=== PATIENT | female | born 1980 | race African-American/Black ===

== ENCOUNTER 2016-07-16 16:28 | Emergency (ER) | payer OTHER ==
[~2016-07-16] VITALS: Ht 165.1 cm; Wt 95.3 kg
[~2016-07-16 16:28] MED LIST: BENZ100C PO; NAPR375T3 PO
[2016-07-16 17:35] VITALS: BP 151/72
--- NOTE | 2016-07-16 17:38 | PHYS DOC ---
Past Medical History Past Medical History: No Pertinent History Past Surgical History: Other Additional Past Surgical Histo: "freeze spots on my cervix" Alcohol Use: None Drug Use: None Adult General Chief Complaint Chief Complaint: HEADACHE HPI HPI Patient is a 35 year old female who presents emergency Department today with a headache that has not responded to [id number] medication for the past 2 days. Patient denies any head injury. She reports some photophobia. She denies phonophobia. She denies nausea or vomiting. She denies fevers or chills. Patient denies focal weakness or alteration sensations. Patient does have a history of headaches in the past. She was actually seen here in March 2015 with a similar complaint. She had a CT scan performed at that time which was normal. Patient states that she did follow-up with a primary care doctor, but has not seen a neurologist. She states that she currently doesn't take any preventive medication for her headache. Review of Systems Review of Systems Constitutional: Denies fever or chills [] Eyes: Denies change in visual acuity, redness, or eye pain [] HENT: Denies nasal congestion or sore throat [] Respiratory: Denies cough or shortness of breath [] Cardiovascular: No additional information not addressed in HPI [] GI: Denies abdominal pain, nausea, vomiting, bloody stools or diarrhea [] : Denies dysuria or hematuria [] Musculoskeletal: Denies back pain or joint pain [] Integument: Denies rash or skin lesions [] Neurologic: Denies headache, focal weakness or sensory changes [] Endocrine: Denies polyuria or polydipsia [] Current Medications Current Medications Current Medications Medications (Trade) Dose Ordered Sig/Jeff Start Time Stop Time Status Last Admin Dose Admin Diphenhydramine HCl (Benadryl) 50 mg 1X ONCE 07/16/16 18:15 07/16/16 18:16 DC 07/16/16 18:20 50 MG Ketorolac Tromethamine (Toradol Im) 60 mg 1X ONCE 07/16/16 18:15 07/16/16 18:16 DC 07/16/16 18:22 60 MG Allergies Allergies Allergies Coded Allergies Type Severity Reaction Last Updated Verified No Known Drug Allergies 03/15/15 No Physical Exam Physical Exam Constitutional: Well developed, well nourished, mild distress, non-toxic appearance. HENT: Normocephalic, atraumatic, bilateral external ears normal, oropharynx moist, no oral exudates, nose normal. Eyes: PERRLA, EOMI, conjunctiva normal, no discharge. [] Neck: Normal range of motion, no tenderness, supple, no stridor. Negative Brudzinski's or cervical lymphadenopathy. Cardiovascular:Heart rate regular rhythm, no murmur [] Lungs & Thorax: Bilateral breath sounds clear to auscultation [] Abdomen: Bowel sounds normal, soft, no tenderness, no masses, no pulsatile masses. [] Skin: Warm, dry, no erythema, no rash. [] Back: No tenderness, no CVA tenderness. [] Extremities: No tenderness, no cyanosis, no clubbing, ROM intact, no edema. [] Neurologic: Alert and oriented X 3, cranial nerves II through XII are intact. Patient is able perform rapid alternating movement and show without difficulty. Romberg is negative for pronator drift. Patient ambulates with a steady, unaided gait. Psychologic: Affect normal, judgement normal, mood normal. [] Current Patient Data Vital Signs Vital Signs Date Time Temp Pulse Resp B/P Pulse Ox O2 Delivery O2 Flow Rate FiO2 07/16/16 17:35 98.4 67 16 100 Room Air 98.4 Lab Values Laboratory Tests Test 07/16/16 16:55 POC Urine HCG, Qualitative Hcg negative (Negative) EKG EKG [] Radiology/Procedures Radiology/Procedures [] Course & Med Decision Making Course & Med Decision Making We'll await results of test. Patient's initial evaluation shows no evidence of meningitis or neurologic deficit. Dragon Disclaimer [place] Disclaimer This electronic medical record was generated, in whole or in part, using a voice recognition dictation system. Departure Departure Impression: Primary Impression: Headache Disposition: HOME, SELF-CARE Condition: GOOD Referrals: UNKNOWN PCP NAME (PCP) Patient Instructions: General Headache Without Cause, [id number] Additional Instructions: 1. As discussed, you have a previous history of headaches. You had a CT scan in March 2015 that was normal. 2. Review the discharge paperwork provided for self-care and reasons to return to the emergency department. 3. Take the medication as prescribed. 4. Follow-up with primary care doctor within the next 7-10 days. Scripts Ondansetron (Zofran Odt)4 Mg Tab.rapdis1 Tab SL Q8HRS nausea and vomiting #10 TAB Prov:SARAH HERRMANN 07/16/16 Butalb/Acetaminophen/Caffeine (Fioricet 50-300-40 Mg Capsule)1 Each Capsule1 Each PO PRN Q4HRS PRN HEADACHE #20 CAP Prov:SARAH HERRMANN 07/16/16 SARAH HERRMANN Jul 16, 2016 17:38
[2016-07-16] MEDS ORDERED: KETOROLAC TROMETHAMINE 60 MG/2 ML INJ. IM ONE (18:15)
[2016-07-16] MEDS ORDERED: DIPHENHYDRAMINE 50 MG/ML VIAL. IM ONE (18:15)
[2016-07-16] MEDS ORDERED: BUTA1CAP29 PO (18:19)
[2016-07-16] MEDS ORDERED: ONDA4TAB10 SL (18:19)
== END 2016-07-16 18:41 | disposition home or self-care (01) ==
LOC: ER 16:28
DX: R51 Headache (principal)
CPT/HCPCS: 81025; 96372; 99284; J1200; J1885

== ENCOUNTER → 2017-06-11 | Outpatient (CLI) | payer OTHER | END | disposition home or self-care (01) | LOC: SLPLAB 18:08 | DX: G47.33 Obstructive sleep apnea (adult) (pediatric) (principal) | CPT/HCPCS: 95810 ==

== ENCOUNTER → 2018-03-11 | Outpatient (CLI) | payer OTHER ==
[~2018-03-11] MED LIST changes: +BUTA1CAP29 PO; +NAPR-695 PO; -NAPR375T3 PO; +ONDA4TAB10 SL
--- NOTE | 2018-03-11 15:54 | KCIC ---
Bilateral digital screening mammograms: Reason for examination: Routine baseline screening. Interpretation was made with the benefit of CAD. The skin and nipples show no abnormalities. No abnormal axillary lymph nodes are seen. The breast parenchyma shows scattered fibroglandular density. (Breast density: Category B.) There are no dominant masses, suspicious calcifications or architectural distortions. Impression: No evidence of malignancy. Recommend routine screening. BI-RADS Category 1: Negative. "Our facility is accredited by the [employer] Mammography Program." This patient's information has been entered into a reminder system for the patient to be notified with the results of her examination and a target date for the next mammogram. Electronically signed by: Jory Marin MD (03/11/2018 3:50 PM) [id number]
== END | disposition home or self-care (01) ==
LOC: KCIC MAMMO 12:49
PROVIDERS: ATTEND Family Medicine
DX: Z12.31 Encounter for screening mammogram for malignant neoplasm of breast (principal)
CPT/HCPCS: 77067

== ENCOUNTER 2018-12-02 20:48 | Emergency (ER) | payer OTHER | END 2018-12-02 21:23 | disposition left against medical advice (07) | LOC: ER 20:48 | DX: G43.909 Migraine, unspecified, not intractable, without status migrainosus (principal); Z53.21 Procedure and treatment not carried out due to patient leaving prior to being seen by health care provider ==

== ENCOUNTER → 2019-02-13 | Outpatient (CLI) | payer OTHER ==
--- NOTE | 2019-02-13 09:15 | KCIC ---
Transabdominal pelvic ultrasound 02/13/2019 INDICATION: Heavy menstrual bleeding COMPARISON STUDY: None Discussion: Ultrasound evaluation of the pelvis was performed transabdominally. Static images are active. Uterus is enlarged measuring 17.1 x 9.3 x 10.2 cm. This is secondary to at least 2 large uterine masses, consistent with leiomyoma. Endometrial thickness is approximately 4 mm, though somewhat poorly evaluated due to adjacent fibroids. The larger fibroid is in the superior fundus, posteriorly measuring 7-8 cm in diameter. The smaller well-defined fibroid is in the anterior body measuring approximately 3 cm in diameter. The right ovary measures 2.4 x 2.2 x 3.1 cm left ovary measures 3.1 x 2.8 x 3.2 cm. Blood flow the ovaries is noted on color Doppler imaging. Limited visualization of the bladder is unremarkable. No free fluid is seen in the pelvis. IMPRESSION: Fibroid uterus. 2 dominant fibroids described above in detail. Electronically signed by: Deonte Lemus MD (02/13/2019 9:13 AM) [facility]
== END | disposition home or self-care (01) ==
LOC: KCIC US 07:54
PROVIDERS: ATTEND Obstetrics & Gynecology
DX: D25.9 Leiomyoma of uterus, unspecified (principal)
CPT/HCPCS: 76856

== ENCOUNTER 2019-03-06 07:43 | Observation (INO) | payer OTHER ==
[~2019-03-06] VITALS: Ht 165.1 cm; Wt 94.8 kg
[~2019-03-06 07:43] MED LIST changes: +HYDROmorphone 2 MG/ML VIAL IV PRN; +IV RINGERS,LACTATED 1000ML 1,000 ML IV SCH; +LIDOCAINE 1% PF 2 ML VIAL. ID PRN; +MORPHINE SULFATE 2 MG/ML VIAL. IV PRN; +MULT1TAB52 PO; +ONDANSETRON PF 4 MG/2 ML VIAL. IV PRN; +PROCHLORPERAZINE 10 MG/2 ML VIAL. IV PRN; +fentaNYL PF VIAL 100 MCG/2 ML VIAL IV PRN
[2019-03-06] MEDS ORDERED: BUPIVACAINE-EPI 0.25%-1:200000 MPF 30 ML VIAL. INJ ONE (08:00)
[2019-03-06 08:41] LABS: BASO # 0.1 x10^3/uL (0.0-0.2); BASO % 1 % (0-3); EOS # 0.1 x10^3/uL (0.0-0.7); EOS % 2 % (0-3); HEMATOCRIT 43.1 % (36.0-47.0); HEMOGLOBIN 14.3 g/dL (12.0-15.5); LYMPH # 2.7 x10^3/uL (1.0-4.8); LYMPH % 51 % (24-48); MEAN CORPUSCULAR HEMOGLOBIN 29 pg (25-35); MEAN CORPUSCULAR HGB CONC 33 g/dL (31-37); MEAN CORPUSCULAR VOLUME 87 fL (79-100); MONO # 0.4 x10^3/uL (0.0-1.1); MONO % 8 % (0-9); NEUT # 2.1 x10^3/uL (1.8-7.7); NEUT % 39 % (31-73); PLATELET COUNT 290 x10^3/uL (140-400); RED BLOOD COUNT 4.93 x10^6/uL (3.50-5.40); RED CELL DISTRIBUTION WIDTH 14.7 % (11.5-14.5); WHITE BLOOD COUNT 5.3 x10^3/uL (4.0-11.0)
[2019-03-06] MEDS ORDERED: INDIGOTINDISULFONATE SODIUM 40 MG/5 ML AMPUL. ONE (10:28)
[2019-03-06] MEDS ORDERED: SURGICEL HEMOSTAT 4X8 EACH. ONE (10:28)
[2019-03-06] MEDS ORDERED: ESTROGENS, CONJ VAGINAL CREAM 30GM TUBE. ONE (10:28)
[2019-03-06] MEDS ORDERED: LIDOCAINE 1%/EPI 1:100,000 20 ML VIAL. ONE (10:31)
[2019-03-06] MEDS ORDERED: fentaNYL PF VIAL 100 MCG/2 ML VIAL ONE ×2 (10:33→12:34)
[2019-03-06] MEDS ORDERED: ROCURONIUM 50 MG/5 ML VIAL. ONE (10:33)
[2019-03-06] MEDS ORDERED: MIDAZOLAM HCL/PF 2 MG/2 ML VIAL. ONE (10:33)
[2019-03-06] MEDS ORDERED: PROPOFOL 20 ML IV ONE (10:33)
[2019-03-06] MEDS ORDERED: LIDOCAINE 2% PF 5 ML VIAL. ONE (10:33)
[2019-03-06] MEDS ORDERED: ONDANSETRON PF 4 MG/2 ML VIAL. ONE (10:33)
[2019-03-06] MEDS ORDERED: DEXAMETHASONE SOD PHOS 4 MG/ML VIAL ONE (10:33)
[2019-03-06] MEDS ORDERED: GLYCOPYRROLATE 1 MG/5 ML VIAL. ONE ×2 (11:26→12:07)
[2019-03-06] MEDS ORDERED: ePHEDrine PF IN SALINE 50 MG/10 ML SYRINGE. IV ONE (11:32)
[2019-03-06] MEDS ORDERED: ESMOLOL 100 MG/10 ML VIAL. IVP ONE (11:32)
[2019-03-06] MEDS ORDERED: KETOROLAC 30 MG/ML VIAL. ONE ×2 (12:04→12:24)
[2019-03-06] MEDS ORDERED: SEVOFLURANE > 120 MINUTES. IH ONE (12:04)
[2019-03-06] MEDS ORDERED: NEOSTIGMINE METHYLSULFATE 5 MG/5 ML SYRINGE. ONE (12:07)
--- NOTE | 2019-03-06 12:56 | PDOC ---
BRIEF OPERATIVE NOTE Date: Mar 06, 2019 Pre-Op Diagnosis 1. Fibroids 2. AUB Post-Op Diagnosis SAme Procedure Performed [facility] Surgeon Dr. Shelby Raw Sampler Dr. Gonzales Anesthesia Type: General Blood Loss 50 ml Specimens Obtained cervix, uterus, johann. fallopian tubes Findings enlarged, fibroid uterus, nml fallopian tubes and ovaries johann. Complications none Operative Note see dictation PATRIZIA SHELBY Jr, MD Mar 06, 2019 12:56
[2019-03-06] MEDS ORDERED: 0.9 % SODIUM CHLORIDE 10 ML DISP.SYRIN. IV PRN (13:00)
[2019-03-06] MEDS ORDERED: KETOROLAC 30 MG/ML VIAL. IV PRN (13:00)
[2019-03-06] MEDS ORDERED: CALCIUM CARBONATE 500 MG TAB.CHEW PO PRN (13:00)
[2019-03-06] MEDS ORDERED: ONDANSETRON PF 4 MG/2 ML VIAL. IV PRN (13:00)
[2019-03-06] MEDS ORDERED: OPIUM/BELLADONNA 30/16.2MG SUPP.RECT. PR PRN (13:00)
[2019-03-06] MEDS ORDERED: ZOLPIDEM 5 MG TABLET. PO PRN (13:00)
[2019-03-06] MEDS ORDERED: SIMETHICONE 80 MG TAB.CHEW PO PRN (13:00)
[2019-03-06] MEDS ORDERED: diphenhydrAMINE 50 MG/ML VIAL IV PRN (13:00)
[2019-03-06] MEDS ORDERED: PROCHLORPERAZINE 10 MG/2 ML VIAL. IV PRN (13:00)
[2019-03-06] MEDS ORDERED: diphenhydrAMINE HCL 25 MG CAPSULE PO PRN (13:00)
[2019-03-06] MEDS ORDERED: DEXTROSE 50% 25 GM / 50ML DISP.SYRIN. IV PRN (13:00)
[2019-03-06] MEDS ORDERED: SEVOFLURANE 61 TO 120 MINUTES. IH ONE (13:05)
--- NOTE | 2019-03-06 13:34 | OP ---
DATE OF SURGERY: 03/06/2019 PREOPERATIVE DIAGNOSES: 1. Fibroids. 2. Abnormal uterine bleeding. POSTOPERATIVE DIAGNOSES: 1. Fibroids. 2. Abnormal uterine bleeding. PROCEDURE: LAVH. SURGEON: Patrizia Shelby MD HOLE FILLER: Dr. Gonzales. ANESTHESIA: GETA. ESTIMATED BLOOD LOSS: 50 mL. COMPLICATIONS: None. FINDINGS: Enlarged fibroid uterus, normal fallopian tubes and ovaries bilaterally. SUMMARY: A 38-year-old with fibroid uterus and abnormal uterine bleeding requiring hysterectomy. She was counseled on the risks, benefits and expectations and voiced clear understanding to proceed. DESCRIPTION OF PROCEDURE: The patient was taken to surgery suite and placed in dorsal lithotomy position. She was prepped with Betadine solution for vaginal prep and ChloraPrep for abdominal prep. After adequate anesthesia, bivalve speculum was placed vaginally. Anterior lip of the cervix grasped with single tooth tenaculum. Valtchev uterine manipulator was then placed. The bivalve speculum was removed. Attention was now placed on abdomen. Small transverse skin incision was made just below the umbilicus with a scalpel. Veress needle was then placed through the infraumbilical incision site. The abdomen was allowed to insufflate up to 2 liters CO2 gas. The Veress needle was then removed, 5 mm trocar was placed. Scope was positioned. The uterus was very enlarged with multiple fibroids. The fallopian tubes and ovaries were somewhat difficult to visualize; therefore, an incision was made in the left lower quadrant as well as in the left upper quadrant with a scalpel, in which 5 mm trocars were placed with aid of graspers, the right fallopian tube and ovary were visualized as well as the left fallopian tube and ovary, which appeared normal. With the aid of the EnSeal device, the right fallopian tube was dissected away from the pelvic sidewall. The right utero-ovarian pedicle and right round ligament was coagulated and dissected. The left fallopian tube was partially dissected away from the left pelvic sidewall. The left round ligament and left utero-ovarian pedicle were very difficult to visualize or access to the size of the uterus. Therefore, we proceeded vaginally. Weighted speculum and curved Jess placed vaginally. The Valtchev uterine manipulator and single tooth tenaculum were removed. Jacquelin clamps were placed on the anterior and posterior lip of the cervix. Cervix was injected with 1% lidocaine with epinephrine in circumferential manner. Bovie cautery was utilized to circumscribe the cervix. The vaginal mucosa was dissected away from the lower uterine segment using moist Ray-Valeria. Parametrial tissue was clamped twice with curved Kevin clamps, cut and suture ligated with 2-0 Vicryl suture. Posterior cul-de-sac was entered sharply with curved Ramirez scissors. The long weighted speculum was placed. Uterosacral ligaments were clamped bilaterally, cut, and suture ligated. Cardinal ligament was clamped bilaterally, cut, and suture ligated. Two additional pedicles were taken just adjacent to the uterus. The anterior cul-de-sac was entered bluntly. The uterus was then retroverted, coring method was then proceeded to debulk the uterus as well as multiple fibroids were enucleated. Once we were down to the uteroovarian pedicle on the left side, this was clamped, cut, and suture ligated. Remaining portion of the uterus, cervix and the right fallopian tube were removed. The left fallopian tube had been removed previously during the vaginal dissection. The pedicles were all hemostatic. A modified Gordon's culdoplasty incorporating uterosacral ligaments bilaterally was performed with 0 Vicryl suture. The remainder of the vaginal cuff was reapproximated using 2-0 Vicryl suture in [id number] manner. Moist vaginal packing was placed. We then proceeded abdominally. The abdomen was once again insufflated up to 1-1/2 liters CO2 gas. The scope was positioned. The pedicles were hemostatic and was verified with suction irrigation. Both ovaries appeared normal and small amount of normal saline was left in posterior cul-de-sac. The trocars were then removed under direct visualization. Abdomen was allowed to deflate as much as possible along with mechanical manipulation. The three skin incisions were reapproximated using 4-0 Vicryl suture in subcuticular manner. A 0.25% Marcaine with epinephrine was injected at each incision site. The patient tolerated the procedure well and was taken to recovery room in stable condition. Sponge and needle count correct x 3. PATRIZIA SHELBY MD DR: PROSPER/tiana JOB#: [id number] / [id number]
[2019-03-06] MEDS: GABAPENTIN 300 MG CAPSULE. PO SCH ×2 (14:00→20:19)
[2019-03-06 14:10] VITALS: BP 145/70
[2019-03-06 14:30] VITALS: BP 128/78
[2019-03-06 15:00] VITALS: BP 129/74
[2019-03-06] MEDS: oxyCODONE/APAP 5/325 1 TAB TABLET PO PRN ×2 (15:57→20:20)
[2019-03-06 16:02] VITALS: BP 127/73
[2019-03-06 18:20] VITALS: BP 132/72
[2019-03-06 23:08] VITALS: BP 132/72
[2019-03-07] MEDS: oxyCODONE/APAP 5/325 1 TAB TABLET PO PRN (02:20)
[2019-03-07 02:50] VITALS: BP 112/63
[2019-03-07 05:09] LABS: BASO % 0 % (0-3); EOS % 0 % (0-3); HEMATOCRIT 36.8 % (36.0-47.0); HEMOGLOBIN 12.1 g/dL (12.0-15.5); LYMPH # 1.7 x10^3/uL (1.0-4.8); LYMPH % 11 % (24-48); MEAN CORPUSCULAR HEMOGLOBIN 29 pg (25-35); MEAN CORPUSCULAR HGB CONC 33 g/dL (31-37); MEAN CORPUSCULAR VOLUME 87 fL (79-100); MONO # 0.9 x10^3/uL (0.0-1.1); MONO % 6 % (0-9); NEUT # 12.5 x10^3/uL (1.8-7.7); NEUT % 82 % (31-73); PLATELET COUNT 262 x10^3/uL (140-400); RED BLOOD COUNT 4.22 x10^6/uL (3.50-5.40); RED CELL DISTRIBUTION WIDTH 14.5 % (11.5-14.5); WHITE BLOOD COUNT 15.1 x10^3/uL (4.0-11.0)
[2019-03-07] MEDS: GABAPENTIN 300 MG CAPSULE. PO SCH ×2 (05:52→13:02)
[2019-03-07 09:56] VITALS: BP 116/83
[2019-03-07 11:08] VITALS: BP 104/57
[2019-03-07] MEDS ORDERED: IV RINGERS,LACTATED 1000ML 1,000 ML IV SCH (12:00)
[2019-03-07] MEDS ORDERED: IBUPROFEN 400 MG TABLET. PO PRN (15:00)
--- NOTE | 2019-03-07 15:52 | PDOC ---
SURGICAL PROGRESS NOTE Subjective Pt. feeling well. Pain controlled. Pt. ambulating, voiding and tolerating regular diet. Vital Signs Vital Signs Date Time Temp Pulse Resp B/P (MAP) Pulse Ox O2 Delivery O2 Flow Rate FiO2 03/07/19 11:08 98.7 77 18 104/57 (73) 98 Room Air 98.7 03/06/19 13:20 8 I&O Intake and Output 03/07/19 07:00 Intake Total 3390 ml Output Total 2125 ml Balance 1265 ml Intake Oral 1990 ml IV Total 1400 ml Output Urine Total 2075 ml Estimated Blood Loss 50 ml PATIENT HAS A RAMOS: No General: Alert, Oriented X3, Cooperative HEENT: Atraumatic Lungs: Clear to auscultation Heart: Regular rate Abdomen: Normal bowel sounds, Soft, No tenderness, No masses Psych/Mental Status: Mental status NL Labs Laboratory Tests Test 03/06/19 08:03 03/06/19 08:20 03/07/19 04:55 03/07/19 08:30 Bedside Urine HCG, Qualitative Hcg negative (Negative) White Blood Count 5.3 x10^3/uL (4.0-11.0) 15.1 x10^3/uL (4.0-11.0) Red Blood Count 4.93 x10^6/uL (3.50-5.40) 4.22 x10^6/uL (3.50-5.40) Hemoglobin 14.3 g/dL (12.0-15.5) 12.1 g/dL (12.0-15.5) Hematocrit 43.1 % (36.0-47.0) 36.8 % (36.0-47.0) Mean Corpuscular Volume 87 fL (79-100) 87 fL (79-100) Mean Corpuscular Hemoglobin 29 pg (25-35) 29 pg (25-35) Mean Corpuscular Hemoglobin Concent 33 g/dL (31-37) 33 g/dL (31-37) Red Cell Distribution Width 14.7 % (11.5-14.5) 14.5 % (11.5-14.5) Platelet Count 290 x10^3/uL (140-400) 262 x10^3/uL (140-400) Neutrophils (%) (Auto) 39 % (31-73) 82 % (31-73) Lymphocytes (%) (Auto) 51 % (24-48) 11 % (24-48) Monocytes (%) (Auto) 8 % (0-9) 6 % (0-9) Eosinophils (%) (Auto) 2 % (0-3) 0 % (0-3) Basophils (%) (Auto) 1 % (0-3) 0 % (0-3) Neutrophils # (Auto) 2.1 x10^3/uL (1.8-7.7) 12.5 x10^3/uL (1.8-7.7) Lymphocytes # (Auto) 2.7 x10^3/uL (1.0-4.8) 1.7 x10^3/uL (1.0-4.8) Monocytes # (Auto) 0.4 x10^3/uL (0.0-1.1) 0.9 x10^3/uL (0.0-1.1) Eosinophils # (Auto) 0.1 x10^3/uL (0.0-0.7) 0.0 x10^3/uL (0.0-0.7) Basophils # (Auto) 0.1 x10^3/uL (0.0-0.2) 0.0 x10^3/uL (0.0-0.2) Glucose (Fingerstick) 101 mg/dL (70-99) Laboratory Tests Test 03/07/19 04:55 03/07/19 08:30 White Blood Count 15.1 x10^3/uL (4.0-11.0) Red Blood Count 4.22 x10^6/uL (3.50-5.40) Hemoglobin 12.1 g/dL (12.0-15.5) Hematocrit 36.8 % (36.0-47.0) Mean Corpuscular Volume 87 fL (79-100) Mean Corpuscular Hemoglobin 29 pg (25-35) Mean Corpuscular Hemoglobin Concent 33 g/dL (31-37) Red Cell Distribution Width 14.5 % (11.5-14.5) Platelet Count 262 x10^3/uL (140-400) Neutrophils (%) (Auto) 82 % (31-73) Lymphocytes (%) (Auto) 11 % (24-48) Monocytes (%) (Auto) 6 % (0-9) Eosinophils (%) (Auto) 0 % (0-3) Basophils (%) (Auto) 0 % (0-3) Neutrophils # (Auto) 12.5 x10^3/uL (1.8-7.7) Lymphocytes # (Auto) 1.7 x10^3/uL (1.0-4.8) Monocytes # (Auto) 0.9 x10^3/uL (0.0-1.1) Eosinophils # (Auto) 0.0 x10^3/uL (0.0-0.7) Basophils # (Auto) 0.0 x10^3/uL (0.0-0.2) Glucose (Fingerstick) 101 mg/dL (70-99) Assessment/Plan A: POD#1 s/p FAB P: D/c home. PATRIZIA IGNACIO Jr, MD Mar 07, 2019 15:52
[2019-03-07] MEDS ORDERED: DOCU-109 PO (15:54)
[2019-03-07] MEDS ORDERED: OXYC1TAB15 PO (15:54)
[2019-03-07] MEDS ORDERED: IBUP-1027 PO (15:54)
--- NOTE | 2019-03-07 15:56 | DISCH ---
DISCHARGE INSTRUCTIONS Condition on Discharge Condition on Discharge: Stable Activity After Discharge Activity Instructions for Disc: Activity as tolerated Lifting Instructions after Dis: No heavy lifting Driving Instructions after Dis: No driving for 2 weeks Diet after Discharge Diet after Discharge: Regular Contacting the DRJonathan after DC Call your doctor for: Concerns you may have Follow-Up Follow up with: Dr. Shelby in 2 wks. PATRIZIA SHELBY Jr, MD Mar 07, 2019 15:56
[2019-03-07 16:15] VITALS: BP 136/76
--- NOTE | 2019-03-07 17:20 | NUR ---
Discharge Note: PT DISCHARGED HOME WITH SELF CARE. PT LEFT FACILITY VIA PRIVATE VEHICLE AT 1700 WITH BOYFRIEND. PT STABLE AND ALERT UPON DISCHARGE. PT PIV REMOVED FROM R AC WITHOUT COMPLICATIONS, BANDAGE APPLIED. PT 3 LAP SITES TO ABDOMEN MIXER TENDER. PT EDUCATED ABOUT DISCHARGE MEDICATIONS, DISCHARGE INSTRUCTIONS, WEIGHT RESTRICTIONS, PELVIC REST INSTRUCTIONS, WOUND CARE INSTRUCTIONS, AND FOLLOW-UP CARE. PT VOICED NO CONCERNS AT THIS TIME. PT LEFT WITH ALL PERSONAL BELONGINGS. QUINTIN RODLAN Discharge instructions and discharge home medications reviewed with Patient and a copy given. All questions have been answered and understanding verbalized.
--- NOTE | 2019-03-10 14:07 | PATHOLOGY ---
[facility] Accession Number: [id number] . 01 Material submitted: . uterus - UTERUS, CERVIX, AND BILATERAL TUBES . 01 Clinical history: . Fibroids . 02 Diagnosis: Uterus with attached right fallopian tube, separate detached segments of myometrium, and separate detached left fallopian tube, laparoscopic assisted vaginal hysterectomy with bilateral salpingectomy: - Leiomyomas, uterine corpus, multiple (combined uterine weight 630 grams). - Chronic inflamation of exocervix, focal. - Secretory endometrium. - Left paratubal cysts. (JPM:radha; 03/10/2019) S 03/10/2019 1009 Local . 02 Comment: There is no atypia or evidence of malignancy. . 02 Electronically signed: . Ascencion Metz MD, Pathologist NPI- [id number] . 01 Gross description: . The specimen is received in formalin, labeled "Porfirio Hammond, uterus and cervix, bilateral tubes". Received is a 411 g aggregate, 14.3 x 8.8 x 7.9 cm disrupted uterus with attached right fallopian tube weighing 3 g, and detached left fallopian tube weighing 2 g. The uterine serosa on the anterior aspect is pink-cruz and smooth in appearance. The serosal aspect of the fundus and most of the posterior aspect is absent. There is a slight amount of serosa present at the base of the posterior aspect, consistent with peritoneal reflection, which is used to orient the uterus. The 1.1 cm cervical os is surrounded by pale cruz to light cruz, smooth ectocervical mucosa. The anterior paracervical margin is inked black. The uterus is opened laterally to reveal a pale cruz, corrugated endocervical canal during 3.6 cm in length. The endometrial cavity is triangular measuring 6.3 cm in length by 3.2 cm in width. The endometrium is pale cruz glistening, lush in appearance and measures up to 0.2 cm in thickness. Serial sectioning reveals a cruz-pink, trabeculated myometrium measuring up to 4.0 cm in thickness displaying multiple intramural fibroids ranging in size from 0.3 to 2.0 cm. . The right fimbriated fallopian tube measures 5.1 cm in length by 0.8 cm in diameter. The serosal surface is inked black. Sectioning reveals a patent lumen. . The left fimbriated fallopian tube measures 3.5 cm in length by 0.5 cm in diameter and displays two attached paratubal cyst measuring 0.6 and 0.8 cm filled with clear serous fluid. Sectioning reveals a patent lumen. . Also received within the specimen container is a 219 g aggregate of fibroids measuring 15.4 x 10.8 x 5.5 cm in aggregate dimensions. Sectioning reveals white-cruz, whorled cut surfaces with no gross evidence of degeneration or necrosis. The specimen is submitted representatively as follows: . A1 12:00 cervix A2 6:00 cervix A3 anterior endomyometrium A4 posterior endomyometrium A5-A6 graphic art sales representative sections of intramural fibroids A7-A9 graphic art sales representative sections of separately submitted fibroids A10 graphic art sales representative sections from left and right fallopian tubes, the right of which is differentially inked. (CAA; 03/07/2019) [facility] 03/10/2019 1006 Local . 02 Pathologist provided ICD-10: D25.9, N72, N83.8 . 02 CPT . 374468 Specimen Comment: A courtesy copy of this report has been sent to [phone], [phone]- Specimen Comment: [id number] Specimen Comment: Report sent to DR IGNACIO / DR CHAKRABORTY Performed at: 01 [facility] [address], [place], [place] [id number] MD Fabrice Enriquez MD Phone: [phone] Performed at: 02 [facility] [address] [place], [place] [id number] MD Ascencion Metz MD Phone: [phone]
== END 2019-03-07 17:24 | disposition home or self-care (01) ==
LOC: SURG 07:43 → 3 NORTH 12:56
PROVIDERS: ADMIT Obstetrics & Gynecology; ATTEND Obstetrics & Gynecology
PROC: 0UT7FZZ Resection of Bilateral Fallopian Tubes, Via Natural or Artificial Opening With Percutaneous Endoscopic Assistance (ICD-10-PCS; 2019-03-06)
PROC: 0UT9FZZ Resection of Uterus, Via Natural or Artificial Opening With Percutaneous Endoscopic Assistance (ICD-10-PCS; principal; 2019-03-06 10:15)
DX: D25.9 Leiomyoma of uterus, unspecified (principal); N93.9 Abnormal uterine and vaginal bleeding, unspecified
CPT/HCPCS: 36415; 58554; 81025; 82962; 85025; 86850; 86900; 86901; 88307; 96374; A7015; G0378; G0379; J0171; J0696; J1100; J1885; J2001; J2250; J2704; J2710; J3010; J3490; J7030; J7120; J2405

== ENCOUNTER → 2020-05-03 | Outpatient (CLI) | payer OTHER ==
[~2020-05-03] MED LIST changes: +DOCU-109 PO; -HYDROmorphone 2 MG/ML VIAL IV PRN; +IBUP-1027 PO; -IV RINGERS,LACTATED 1000ML 1,000 ML IV SCH; -LIDOCAINE 1% PF 2 ML VIAL. ID PRN; -MORPHINE SULFATE 2 MG/ML VIAL. IV PRN; +MULT-445 PO; -MULT1TAB52 PO; -ONDANSETRON PF 4 MG/2 ML VIAL. IV PRN; +OXYC1TAB15 PO; -PROCHLORPERAZINE 10 MG/2 ML VIAL. IV PRN; -fentaNYL PF VIAL 100 MCG/2 ML VIAL IV PRN
--- NOTE | 2020-05-03 15:51 | KCIC ---
Bilateral digital screening mammograms: Reason for examination: Routine screening. Comparison is made to previous study dated 03/11/2018. Interpretation was made with the benefit of CAD. The skin and nipples show no abnormalities. No abnormal axillary lymph nodes are seen. The breast par enchyma shows scattered fibroglandular density. (Breast density: Category B.) There continues to be a small circumscribed nodule in the 4:00 B position of the right breast which is stable. There are no new dominant masses, suspicious calcifications or architectural distortions. Impression: No evidence of malignancy. Recommend routine screening. BI-RADS Category 2: Benign. "Our facility is accredited by the [employer] Mammography Program." This patient's information has been entered into a reminder system for the patient to be notified wit h the results of her examination and a target date for the next mammogram. Electronically signed by: Jory Marin MD (05/03/2020 3:49 PM) [email or web address]
== END ==
LOC: KCIC MAMMO 10:03
PROVIDERS: ATTEND Family Medicine
DX: Z12.31 Encounter for screening mammogram for malignant neoplasm of breast (principal)
CPT/HCPCS: 77067